=== PATIENT | female | born 1950 | race Caucasian/White ===

== ENCOUNTER → 2016-08-20 | Outpatient (REF) | payer OTHER ==
[2016-08-20 12:55] LABS: BASO % 0.4 % (0.0-1.0); EOS # 0.1 K/mm3 (0.0-0.50); EOS % 1.1 % (0.0-3.0); LARGE UNSTAINED CELL # 0.2 K/mm3 (0.0-0.4); LARGE UNSTAINED CELL % 1.5 % (0.0-4.0); LYMPH # 2.5 K/mm3 (1.5-4.5); LYMPH % 24.1 % (24.0-44.0); MEAN CORPUSCULAR HEMOGLOBIN 27.7 pg (27.0-33.0); MEAN CORPUSCULAR HGB CONC 32.1 g/dl (32.0-36.5); MEAN CORPUSCULAR VOLUME 86.3 fl (80.0-96.0); MONO # 0.4 K/mm3 (0.0-0.8); MONO % 3.7 % (0.0-5.0); NEUTROPHILS # 7.2 K/mm3 (1.8-7.7); NEUTROPHILS % 69.2 % (36.0-66.0); PLATELET COUNT, AUTOMATED 321 k/mm3 (150-450); RED CELL DISTRIBUTION WIDTH 13.2 % (11.5-14.5); WHITE BLOOD COUNT 10.4 K/mm3 (4.0-10.0)
[2016-08-20 13:08] LABS: FOLATE > 24.0 NG/ML; VITAMIN B12 LEVEL 387 PG/ML
[2016-08-20 14:47] LABS: ALBUMIN 3.6 GM/DL (3.2-5.2); ALBUMIN/GLOBULIN RATIO 1.03 (1.00-1.93); ALKALINE PHOSPHATASE 98 U/L (45-117); ALT/SGPT 29 U/L (12-78); ANION GAP 15 MEQ/L (8-16); AST/SGOT 16 U/L (15-37); BILIRUBIN,TOTAL 0.3 MG/DL (0.2-1.0); BLOOD UREA NITROGEN 16 MG/DL (7-18); CALCIUM LEVEL 9.3 MG/DL (8.8-10.2); CARBON DIOXIDE LEVEL 23 MEQ/L (21-32); CHLORIDE LEVEL 103 MEQ/L (98-107); CHOLESTEROL LEVEL 171 MG/DL (<200); CREATININE FOR GFR 0.92 MG/DL (0.55-1.02); GLOMERULAR FILTRATION RATE > 60.0 (>45); GLUCOSE, FASTING 167 MG/DL (80-110); MAGNESIUM LEVEL 1.6 MG/DL (1.8-2.4); POTASSIUM SERUM 4.4 MEQ/L (3.5-5.1); SODIUM LEVEL 141 MEQ/L (136-145); TOTAL PROTEIN 7.1 GM/DL (6.4-8.2); TRIGLYCERIDES LEVEL 126 MG/DL (<150)
== END ==
LOC: M SFHCADAM 09:27
PROVIDERS: ATTEND Physician Assistant Medical
DX: K21.9 Gastro-esophageal reflux disease without esophagitis (principal); E55.9 Vitamin D deficiency, unspecified; E11.59 Type 2 diabetes mellitus with other circulatory complications; E83.42 Hypomagnesemia; E53.8 Deficiency of other specified B group vitamins

== ENCOUNTER → 2016-10-22 | Outpatient (REF) | payer OTHER | LOC: M SFHCADAM 09:21 | PROVIDERS: ATTEND Physician Assistant Medical | DX: E11.59 Type 2 diabetes mellitus with other circulatory complications (principal) ==

== ENCOUNTER → 2017-02-07 | Outpatient (CLI) | payer MEDICARE, MEDICAID ==
--- NOTE | 2017-02-07 15:48 | REPMRS ---
Patient History The patient states she has not had a clinical breast exam in over a year. Family history of breast cancer in maternal grandmother at age 50 or over. Digital Woman Screen Mammo: February 07, 2017 - Exam #: [id number] Bilateral CC and MLO view(s) were taken. Technologist: Shital Nunn, Technologist Prior study comparison: November 09, 2015, digital woman screen mammo performed at [facility] to [facility]. May 07, 2014, digital woman screen mammo performed at [facility] to [facility]. FINDINGS: There are scattered fibroglandular densities. There is a fairly symmetric fibroglandular pattern in both breasts. There has been no interval development of masses, areas of architectural distortion or clusters of microcalcifications typical of malignancy. ASSESSMENT: BI-RADS/ACR category 2 mammogram. Benign finding(s). Recommendation Routine screening mammogram of both breasts in 1 year (for women over age 40). This mammogram was interpreted with the aid of an FDA-approved computer-aided dectection system. Electronically Signed By: Enrike Holliday MD 02/07/17 [id number]
--- NOTE | 2017-02-11 10:44 | DEXA ---
AP SPINE L1 - L4 1.536 2.8 4.4 LT FEMUR TOTAL 0.642 -2.9 -1.7 RT FEMUR TOTAL 1.054 0.4 1.6 TOTAL BODY TOTAL OTHER DUAL FEMUR FRAX* ASSESSMENT Risk factors: Secondary osteoporosis. 10 year probability of fracture Major osteoporotic fracture 12.5 % Hip fracture 2.5 % COMMENTS: Normal bone densitometry of the spine. Normal bone densitometry of the right hip. There is low bone density of the left hip. The increased density of the spine does represent a significant change. The decreased density of the left hip does represent a significant change. The decreased density of the right hip does not represent significant change. The density of the spine has increased 16.3% since the initial exam on 11/2004. The spine density has increased 2.7% since the most recent exam on 04/2014. The density of the left hip has decreased 23.7% since the initial exam on 2004. The density of the left hip has decreased 4.9% since the the most recent exam on 04/2014. The density of the right hip has increased 14.1% since the initial exam on 2004. The density of the right hip has decreased 0.8% since the most recent exam on . FOLLOW-UP: Recommendation for the next bone density exam: 2 years. JHONATAN
== END ==
LOC: M WHC 13:21
PROVIDERS: ATTEND Physician Assistant Medical
DX: Z12.31 Encounter for screening mammogram for malignant neoplasm of breast (principal); M81.0 Age-related osteoporosis without current pathological fracture
CPT/HCPCS: 77080; G0202

== ENCOUNTER → 2017-04-12 | Outpatient (REF) | payer MEDICARE, MEDICAID ==
[2017-04-12 15:02] LABS: ALBUMIN 3.4 GM/DL (3.2-5.2); ALKALINE PHOSPHATASE 97 U/L (45-117); ALT/SGPT 32 U/L (12-78); ANION GAP 12 MEQ/L (8-16); AST/SGOT 12 U/L (15-37); BILIRUBIN,TOTAL 0.3 MG/DL (0.2-1.0); BLOOD UREA NITROGEN 11 MG/DL (7-18); CALCIUM LEVEL 9.1 MG/DL (8.8-10.2); CARBON DIOXIDE LEVEL 26 MEQ/L (21-32); CHLORIDE LEVEL 101 MEQ/L (98-107); CHOLESTEROL LEVEL 184 MG/DL (<200); CREATININE FOR GFR 0.68 MG/DL (0.55-1.02); GLOMERULAR FILTRATION RATE > 60.0 (>45); GLUCOSE, FASTING 178 MG/DL (80-110); MAGNESIUM LEVEL 1.6 MG/DL (1.8-2.4); POTASSIUM SERUM 4.6 MEQ/L (3.5-5.1); SODIUM LEVEL 139 MEQ/L (136-145); TOTAL PROTEIN 6.8 GM/DL (6.4-8.2); TRIGLYCERIDES LEVEL 127 MG/DL (<150)
== END ==
LOC: M SFHCADAM 10:51
PROVIDERS: ATTEND Physician Assistant Medical
DX: E78.4 Other hyperlipidemia (principal); E11.59 Type 2 diabetes mellitus with other circulatory complications; E83.42 Hypomagnesemia; E55.9 Vitamin D deficiency, unspecified

== ENCOUNTER → 2017-11-26 | Outpatient (REF) | payer MEDICARE, MEDICAID ==
[2017-11-26 13:44] LABS: ALBUMIN 3.7 GM/DL (3.2-5.2); ALBUMIN/GLOBULIN RATIO 1.06 (1.00-1.93); ALKALINE PHOSPHATASE 81 U/L (45-117); ALT/SGPT 27 U/L (12-78); ANION GAP 8 MEQ/L (8-16); AST/SGOT 17 U/L (7-37); BILIRUBIN,TOTAL 0.3 MG/DL (0.2-1.0); BLOOD UREA NITROGEN 16 MG/DL (7-18); CALCIUM LEVEL 9.3 MG/DL (8.8-10.2); CARBON DIOXIDE LEVEL 27 MEQ/L (21-32); CHLORIDE LEVEL 106 MEQ/L (98-107); CHOLESTEROL LEVEL 139 MG/DL (<200); CHOLESTEROL RISK RATIO 2.673 (<5); CREATININE FOR GFR 0.79 MG/DL (0.55-1.30); GLOMERULAR FILTRATION RATE > 60.0 (>45); GLUCOSE, FASTING 151 MG/DL (70-100); HDL CHOLESTEROL 52 MG/DL (>40); LDL CHOLESTEROL 65.2 MG/DL (<100); NON-HDL-C 87 MG/DL; POTASSIUM SERUM 4.4 MEQ/L (3.5-5.1); SODIUM LEVEL 141 MEQ/L (136-145); TOTAL PROTEIN 7.2 GM/DL (6.4-8.2); TRIGLYCERIDES LEVEL 109 MG/DL (<150)
[2017-11-26 13:56] LABS: ESTIMATED AVERAGE GLUCOSE 186 MG/DL (60-110); HEMOGLOBIN A1c 8.1 %
== END ==
LOC: M SFHCADAM 12:25
DX: F32.9 Major depressive disorder, single episode, unspecified (principal); E11.59 Type 2 diabetes mellitus with other circulatory complications
CPT/HCPCS: 84443

== ENCOUNTER → 2018-05-09 | Outpatient (REF) | payer MEDICARE, MEDICAID ==
[2018-05-09 12:46] LABS: BASO # 0.1 10^3/uL (0.0-0.2); BASO % 0.5 % (0.0-1.0); EOS # 0.2 10^3/uL (0.0-0.50); EOS % 1.5 % (0.0-3.0); HEMATOCRIT 46.3 % (36.0-47.0); HEMOGLOBIN 14.8 g/dl (12.0-15.5); IMMATURE GRANULOCYTE % 0.6 % (0-3.0); LYMPH # 3.3 10^3/uL (1.5-4.5); MEAN CORPUSCULAR HEMOGLOBIN 27.9 pg (27.0-33.0); MEAN CORPUSCULAR VOLUME 87.4 fl (80.0-96.0); MONO # 0.8 10^3/uL (0.0-0.8); MONO % 7.4 % (0.0-5.0); NEUTROPHILS # 6.5 10^3/uL (1.8-7.7); PLATELET COUNT, AUTOMATED 341 10^3/uL (150-450); RED CELL DISTRIBUTION WIDTH 14.1 % (11.5-14.5); WHITE BLOOD COUNT 10.8 10^3/uL (4.0-10.0)
[2018-05-09 13:17] LABS: ESTIMATED AVERAGE GLUCOSE 197 MG/DL (60-110); HEMOGLOBIN A1c 8.5 %
[2018-05-09 13:19] LABS: ALBUMIN 3.7 GM/DL (3.2-5.2); ALBUMIN/GLOBULIN RATIO 1.03 (1.00-1.93); ALKALINE PHOSPHATASE 107 U/L (45-117); ALT/SGPT 30 U/L (12-78); ANION GAP 14 MEQ/L (8-16); AST/SGOT 15 U/L (7-37); BILIRUBIN,TOTAL 0.3 MG/DL (0.2-1.0); BLOOD UREA NITROGEN 17 MG/DL (7-18); CALCIUM LEVEL 9.9 MG/DL (8.8-10.2); CARBON DIOXIDE LEVEL 23 MEQ/L (21-32); CHLORIDE LEVEL 102 MEQ/L (98-107); CHOLESTEROL LEVEL 216 MG/DL (<200); CHOLESTEROL RISK RATIO 3.857 (<5); CREATININE FOR GFR 0.86 MG/DL (0.55-1.30); GLOMERULAR FILTRATION RATE > 60.0 (>45); GLUCOSE, FASTING 214 MG/DL (70-100); HDL CHOLESTEROL 56 MG/DL (>40); LDL CHOLESTEROL 132 MG/DL (<100); NON-HDL-C 160 MG/DL; POTASSIUM SERUM 4.6 MEQ/L (3.5-5.1); SODIUM LEVEL 139 MEQ/L (136-145); TOTAL PROTEIN 7.3 GM/DL (6.4-8.2); TRIGLYCERIDES LEVEL 138 MG/DL (<150)
[2018-05-09 13:21] LABS: TOTAL 25(OH) VITAMIN D 32.9 NG/ML (30.0-100.0)
[2018-05-09 13:26] LABS: FOLATE > 24.0 NG/ML
== END ==
LOC: M SFHCADAM 09:59
DX: E83.42 Hypomagnesemia (principal); E53.8 Deficiency of other specified B group vitamins; E11.59 Type 2 diabetes mellitus with other circulatory complications; E55.9 Vitamin D deficiency, unspecified
CPT/HCPCS: 82746

== ENCOUNTER → 2018-12-04 | Outpatient (REF) | payer MEDICARE, MEDICAID ==
[2018-12-04 12:46] LABS: BASO % 0.4 % (0.0-1.0); HEMATOCRIT 42.5 % (36.0-47.0); HEMOGLOBIN 13.5 g/dl (12.0-15.5); LYMPH % 33.4 % (24.0-44.0); MEAN CORPUSCULAR HEMOGLOBIN 27.8 pg (27.0-33.0); MEAN CORPUSCULAR HGB CONC 31.8 g/dl (32.0-36.5); MEAN CORPUSCULAR VOLUME 87.4 fl (80.0-96.0); MONO % 6.5 % (0.0-5.0); PLATELET COUNT, AUTOMATED 348 10^3/uL (150-450); RED BLOOD COUNT 4.86 10^6/uL (4.00-5.40); WHITE BLOOD COUNT 9.7 10^3/uL (4.0-10.0)
[2018-12-04 12:47] LABS: EOS # 0.1 10^3/uL (0.0-0.50); LYMPH # 3.2 10^3/uL (1.5-4.5); MONO # 0.6 10^3/uL (0.0-0.8); NEUTROPHILS # 5.6 10^3/uL (1.8-7.7)
[2018-12-04 13:17] LABS: ALBUMIN 3.5 GM/DL (3.2-5.2); ALT/SGPT 20 U/L (12-78); BILIRUBIN,TOTAL 0.3 MG/DL (0.2-1.0); BLOOD UREA NITROGEN 16 MG/DL (7-18); CALCIUM LEVEL 9.4 MG/DL (8.8-10.2); CARBON DIOXIDE LEVEL 27 MEQ/L (21-32); CHLORIDE LEVEL 99 MEQ/L (98-107); CHOLESTEROL LEVEL 162 MG/DL (<200); CHOLESTEROL RISK RATIO 2.793 (<5); CREATININE FOR GFR 0.77 MG/DL (0.55-1.30); FOLATE > 24.0 NG/ML; GLOMERULAR FILTRATION RATE > 60.0 (>45); GLUCOSE, FASTING 263 MG/DL (70-100); HDL CHOLESTEROL 58 MG/DL (>40); LDL CHOLESTEROL 74 MG/DL (<100); NON-HDL-C 104 MG/DL; POTASSIUM SERUM 4.3 MEQ/L (3.5-5.1); SODIUM LEVEL 135 MEQ/L (136-145); TOTAL 25(OH) VITAMIN D 29.5 NG/ML (30.0-100.0); TOTAL PROTEIN 6.6 GM/DL (6.4-8.2); TRIGLYCERIDES LEVEL 149 MG/DL (<150); VITAMIN B12 LEVEL 451 PG/ML
[2018-12-04 15:18] LABS: HEMOGLOBIN A1c 10.8 %
== END ==
LOC: M SFHCADAM 09:58
PROVIDERS: ATTEND Physician Assistant Medical
DX: E11.59 Type 2 diabetes mellitus with other circulatory complications (principal); E55.9 Vitamin D deficiency, unspecified; E83.42 Hypomagnesemia; E53.8 Deficiency of other specified B group vitamins; Z79.899 Other long term (current) drug therapy

== ENCOUNTER → 2018-12-25 | Outpatient (CLI) | payer MEDICARE, MEDICAID ==
--- NOTE | 2018-12-25 15:43 | REP ---
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 There is significant atherosclerotic plaquing bilaterally without compelling duplex Doppler sonographic evidence of hemodynamically significant focal stenosis. There are triphasic waveforms in the common femoral, superficial femoral and popliteal arteries with monophasic waveforms of the profunda and calf arteries on the right. Biphasic waveforms are seen in the left common femoral and proximal superficial femoral arteries. Multiple collateral arterial vessels communicate with the right posterior tibial artery. Right Left Common femoral artery 95.0 cm/s 111 cm/s Profunda 55.0 cm/s 89.4 cm/s Proximal SFA 102 cm/s 45.8 cm/s Mid SFA 39.2 cm/s Distal SFA 69.1 cm/s Popliteal 70.4 cm/s Proximal NATALIE 38.8 cm/s Tibial peroneal trunk 38.1 cm/s Proximal SALES ADMINISTRATOR 31.1 cm/s Distal SALES ADMINISTRATOR 20.6 cm/s Distal NATALIE 8.9 cm/s IMPRESSION: Significant diffuse atherosclerotic plaquing and narrowing without focal stenosis as discussed in detail above. Electronically Signed by Enrike Holliday MD 12/25/2018 04:39 P
== END ==
LOC: M RAD 13:36
PROVIDERS: ATTEND Surgery Vascular Surgery
DX: I73.9 Peripheral vascular disease, unspecified (principal); Z89.612 Acquired absence of left leg above knee

== ENCOUNTER → 2018-12-30 | Outpatient (CLI) | payer MEDICARE, MEDICAID ==
[2018-12-30 11:01] LABS: HEMATOCRIT 42.2 % (36.0-47.0); HEMOGLOBIN 13.5 g/dl (12.0-15.5); MEAN CORPUSCULAR HEMOGLOBIN 28.2 pg (27.0-33.0); MEAN CORPUSCULAR VOLUME 88.3 fl (80.0-96.0); PLATELET COUNT, AUTOMATED 354 10^3/uL (150-450); RED BLOOD COUNT 4.78 10^6/uL (4.00-5.40); WHITE BLOOD COUNT 11.1 10^3/uL (4.0-10.0)
[2018-12-30 11:31] LABS: ALBUMIN 3.5 GM/DL (3.2-5.2); ALT/SGPT 27 U/L (12-78); BILIRUBIN,TOTAL 0.2 MG/DL (0.2-1.0); BLOOD UREA NITROGEN 13 MG/DL (7-18); CALCIUM LEVEL 9.2 MG/DL (8.8-10.2); CARBON DIOXIDE LEVEL 30 MEQ/L (21-32); CHLORIDE LEVEL 102 MEQ/L (98-107); CREATININE FOR GFR 0.77 MG/DL (0.55-1.30); GLOMERULAR FILTRATION RATE > 60.0 (>45); GLUCOSE, FASTING 255 MG/DL (70-100); POTASSIUM SERUM 4.3 MEQ/L (3.5-5.1); SODIUM LEVEL 138 MEQ/L (136-145); TOTAL PROTEIN 6.8 GM/DL (6.4-8.2)
== END ==
LOC: M LAB 10:16
PROVIDERS: ATTEND Surgery Vascular Surgery
DX: I70.235 Atherosclerosis of native arteries of right leg with ulceration of other part of foot (principal)

== ENCOUNTER → 2019-01-06 | Outpatient (CLI) | payer MEDICARE, MEDICAID ==
[~2019-01-06] MED LIST: HEPARIN 1,000 UNITS/ML 10ML VIAL (FOR RADIOLOGY& DIALYSIS ONLY) As Ordered ONE; ISOVUE-300 61% 50ML VIAL (Q9967) As Ordered ONE; LIDOCAINE 2% MDV 20 ML VIAL As Ordered ONE; MIDAZOLAM INJ 2 MG/2 ML VIAL (J2250) As Ordered ONE; NITROGLYCERIN IN D5W 25MG/250ML (100MCG/ML) As Ordered ONE; ceFAZolin 1GM INJ (J0690 PER 500MG) As Ordered ONE; fentaNYL 100 MCG/2 ML INJECTION (J3010) As Ordered ONE
--- NOTE | 2019-01-06 10:25 | ROOPDOC ---
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 PROCEDURE: 1. US guided access L LEADITE HEATER 2. Arteriogram RLE 3. Select view arteriograms of popliteal, anterior tibial, posterior tibial, and peroneal arteries 4. Angioplasty anterior tibial and peroneal arteries with 3 x 220 ariel balloon 5. Completion arteriograms 6. Mynx closure L LEADITE HEATER access site SURGEON: Shital Abrams MD ANESTHESIA: 10cc lidocaine local anesthesia; Moderate intravenous conscious sedation was supervised by Dr. Abrams. The patient was independently monitored by a registered nurse assigned to the Department of radiology using automated blood pressure, EKG, and pulse oximetry. The detailed conscious record is permanently stored in the hospital information system. The following is a conscious sedation record: 2mg versed, 100mcg fentanyl, start time 08:03, end time 09:56, heparin 5000 units INDICATION FOR PROCEDURE: Ms. Cohen is a very pleasant 68-year-old patient with a history of Buerger's disease, status post left above-knee amputation, wheelchair-bound who utilizes her right lower extremity for transfers and pivoting which allows her to stay at home with her . She developed a small wound on the medial right ankle, and arterial duplex revealed possible tibial insufficiency. I had a long discussion with the patient about options with Buerger's disease, and that typically stenotic vessels are resistant to angioplasty and intervention. However, the patient has quit smoking for quite some time, and I feel it is worthwhile to try and provide any improvement outflow that we can to help her maintain her independence and avoid amputation in the future. Risks benefits alternatives to an arteriogram and potential intervention were explained and she is agreeable to proceed. Informed consent was obtained. FINDINGS: 1. Right femoral and popliteal vessels widely patent 2. Right peroneal artery is the single vessel runoff to the foot and ankle and supplies the dorsal pedis and posterior tibial arteries distally through collaterals. 3. The right anterior tibial artery is patent proximally, and occludes upper mid calf 4. The right posterior tibial artery is patent proximally, occludes upper mid calf 5. Unable to cross posterior tibial artery- aborted. 6. Unable to successfully improve patency right anterior tibial artery despite angioplasty and nitroglycerin due to spasm (Buerger's disease) 7. Spasm right peroneal artery relieved with angioplasty and nitroglycerin. PROCEDURE: The patient was brought to the angiographic suite in stable condition and placed supine on the fluoroscopic table. Antibiotics and sedation were administered without complication. A timeout was performed. Local anesthesia was ministers the skin and subcutaneous tissue in the left groin and a microneedle was used to access left common femoral artery under ultrasound guidance. A wire was passed through this access and a micro-sheath was placed. Glidewire was advanced through this under fluoroscopic guidance and the micro-sheath was replaced with a 5 Prydeinig sheath and flushed with saline. We then went up and over the bifurcation with a stiff Glidewire and advanced this into the superficial femoral artery. We then replaced the short sheath with a 45 cm 5 Prydeinig destination sheath. The sheath was flushed with saline. We then performed right lower extremity arteriograms which showed that the femoral and popliteal systems were widely patent, but there was significant anterior tibial posterior tibial disease. Both vessels tapered off after the proximal third, and had minor distal filling through collateral vessels from the widely patent peroneal artery. The peroneal arteries a single vessel runoff to the foot. The pedal vessels are small, wispy, but for the most part patent. We advance her Glidewire and glide cath down to the tibial vessels and select views were performed from the popliteal artery and within each of the tibial vessels once selected. First, we attempted to cross through to the distal posterior tibial artery. We were able to enter the artery with the Glidewire and glide cath, and then selected and 018 wire to try and cross distally. At first, the wire appeared to take the natural course of the vessel, but upon placing a catheter over the wire to this distal aspect, contrast injection revealed we were extraluminal with fistulization to the vein. Upon retracting the catheter to the proximal vessel, there is no active extravasation noted with repeat contrast injection. We again tried to cross but unfortunately the only patent aspect was a small collateral which we initially mistook for the posterior tibial artery itself. This was then aborted. We next were able to cross into the anterior tibial artery and an O18 wire in a when a [place] were used to cross distally. Contrast injection showed we were in the true lumen. We then angioplastied at low atmospheres with a 3 x 200 ariel balloon for three-minute inflation. Following this, we had improve patency in the anterior tibial artery but the the peroneal artery was not filling well. We then passed the wire and then the balloon into the distal peroneal artery and did an angioplasty at low atmospheres for three-minute inflations. Following this, we noted significant spasm in the vessel and 200 g of nitroglycerin was given at the origin of the anterior tibial and tibioperoneal trunk. There was some improvement, but not drastic in the anterior tibial artery. We therefore angioplastied this a second time at low inflations of 1 jeyson for 3 minutes. Following this, there was still some spasm, and we gave an additional 100 g nitroglycerin into the anterior tibial artery and the peroneal artery. After this, there was some improvement in flow in both vessels but I think this spasm is likely due to her history of Buer reymundo's disease and further angioplasty was only going to increase the spasm and give us no further benefit. I'm hopeful that the angioplasty will provide improvement flow through the anterior tibial artery once spasm completely resolves to give her an overall better perfusion to the foot. Therefore I felt the best option was to flush well with heparin which we did prior to removing the catheter. We then exchange the sheath over a stiff Glidewire for a short 5 Prydeinig sheath and deployed a mynx closure device with good hemostasis. Pressure was held for 10 minutes and sterile dressings were applied. The patient was transferred to recovery in stable condition. Her foot was warm and pink with biphasic signals at the DP and PT vessels. ESTIMATED BLOOD LOSS: Approximately 5 mL. COMPLICATIONS: None. PLAN: Our plan to see the patient back in a week to check her left groin access and to make sure that her perfusion to the right lower extremity is intact. She should continue local wound care to the left medial ankle wound, which is almost healed. We again reiterated the importance of her seeing a corporate director of human resources to cut her toenails. SHITAL ABRAMS MD Jan 06, 2019 10:25
== END | disposition home or self-care (01) ==
LOC: M IRPRO 06:59
PROVIDERS: ATTEND Surgery Vascular Surgery
DX: I70.233 Atherosclerosis of native arteries of right leg with ulceration of ankle (principal); I73.1 Thromboangiitis obliterans [Buerger's disease]; L97.319 Non-pressure chronic ulcer of right ankle with unspecified severity; Z87.891 Personal history of nicotine dependence; Z89.612 Acquired absence of left leg above knee; Z99.3 Dependence on wheelchair
CPT/HCPCS: 37228; 37232; 99152; 99153; C1725; C1760; C1769; C1887; C1894; J0690; J2250; J3010; Q9967

== ENCOUNTER → 2020-03-25 | Outpatient (REF) | payer MEDICARE, MEDICAID ==
[2020-03-25 19:38] LABS: BASO % 0.3 % (0.0-1.0); EOS # 0.1 10^3/uL (0.0-0.5); EOS % 0.7 % (0.0-3.0); HEMATOCRIT 47.4 % (36.0-47.0); HEMOGLOBIN 14.4 g/dl (12.0-15.5); LYMPH # 3.2 10^3/uL (1.5-5.0); LYMPH % 26.1 % (24.0-44.0); MEAN CORPUSCULAR HEMOGLOBIN 26.2 pg (27.0-33.0); MEAN CORPUSCULAR HGB CONC 30.4 g/dl (32.0-36.5); MEAN CORPUSCULAR VOLUME 86.2 fl (80.0-96.0); MONO # 0.8 10^3/uL (0.0-0.8); MONO % 6.3 % (0.0-5.0); NEUTROPHILS # 8.1 10^3/uL (1.5-8.5); NEUTROPHILS % 66.1 % (36.0-66.0); PLATELET COUNT, AUTOMATED 424 10^3/uL (150-450); WHITE BLOOD COUNT 12.3 10^3/uL (4.0-10.0)
[2020-03-25 20:11] LABS: ALBUMIN 3.7 GM/DL (3.2-5.2); ALT/SGPT 39 U/L (12-78); BILIRUBIN,TOTAL 0.5 MG/DL (0.2-1.0); BLOOD UREA NITROGEN 8 MG/DL (7-18); CALCIUM LEVEL 9.5 MG/DL (8.8-10.2); CARBON DIOXIDE LEVEL 30 MEQ/L (21-32); CHLORIDE LEVEL 100 MEQ/L (98-107); CHOLESTEROL LEVEL 214 MG/DL (<200); CHOLESTEROL RISK RATIO 3.821 (<5); CREATININE FOR GFR 0.82 MG/DL (0.55-1.30); GLOMERULAR FILTRATION RATE > 60.0 (>45); GLUCOSE, FASTING 228 MG/DL (70-100); HDL CHOLESTEROL 56 MG/DL (>40); LDL CHOLESTEROL 129 MG/DL (<100); NON-HDL-C 158 MG/DL; POTASSIUM SERUM 4.5 MEQ/L (3.5-5.1); SODIUM LEVEL 138 MEQ/L (136-145); TOTAL PROTEIN 7.8 GM/DL (6.4-8.2); TRIGLYCERIDES LEVEL 144 MG/DL (<150)
[2020-03-25 21:59] LABS: HEMOGLOBIN A1c 7.7 %
== END ==
LOC: M LABDRWAD 17:45
PROVIDERS: ATTEND Physician Assistant Medical
DX: E11.51 Type 2 diabetes mellitus with diabetic peripheral angiopathy without gangrene (principal); E78.2 Mixed hyperlipidemia; K21.9 Gastro-esophageal reflux disease without esophagitis; E83.42 Hypomagnesemia
CPT/HCPCS: 36415; 80053; 80061; 83036; 83735; 84443; 85025; G0463

== ENCOUNTER → 2020-11-09 | Outpatient (REF) | payer MEDICARE, MEDICAID ==
[2020-11-09 13:36] LABS: BASO # 0.1 10^3/uL (0.0-0.2); BASO % 0.6 % (0.0-1.0); EOS # 0.1 10^3/uL (0.0-0.5); HEMATOCRIT 42.3 % (36.0-47.0); HEMOGLOBIN 12.9 g/dl (12.0-15.5); LYMPH # 3.1 10^3/uL (1.5-5.0); LYMPH % 30.8 % (24.0-44.0); MEAN CORPUSCULAR HEMOGLOBIN 27.3 pg (27.0-33.0); MEAN CORPUSCULAR HGB CONC 30.5 g/dl (32.0-36.5); MEAN CORPUSCULAR VOLUME 89.4 fl (80.0-96.0); MONO # 0.8 10^3/uL (0.0-0.8); MONO % 7.6 % (2.0-8.0); PLATELET COUNT, AUTOMATED 336 10^3/uL (150-450); RED BLOOD COUNT 4.73 10^6/uL (4.00-5.40); WHITE BLOOD COUNT 10.2 10^3/uL (4.0-10.0)
[2020-11-09 13:39] LABS: ALBUMIN 3.4 GM/DL (3.2-5.2); ALT/SGPT 33 U/L (12-78); BILIRUBIN,TOTAL 0.3 MG/DL (0.2-1.0); BLOOD UREA NITROGEN 12 MG/DL (7-18); CALCIUM LEVEL 10.1 MG/DL (8.8-10.2); CARBON DIOXIDE LEVEL 29 MEQ/L (21-32); CHLORIDE LEVEL 103 MEQ/L (98-107); CHOLESTEROL LEVEL 156 MG/DL (<200); CHOLESTEROL RISK RATIO 2.557 (<5); CREATININE FOR GFR 0.84 MG/DL (0.55-1.30); FOLATE > 24.0 NG/ML; GLOMERULAR FILTRATION RATE > 60.0 (>45); GLUCOSE, FASTING 179 MG/DL (70-100); HDL CHOLESTEROL 61 MG/DL (>40); IRON (FE) 50 UG/DL (50-170); LDL CHOLESTEROL 71 MG/DL (<100); MAGNESIUM LEVEL 1.9 MG/DL (1.8-2.4); NON-HDL-C 95 MG/DL; POTASSIUM SERUM 4.4 MEQ/L (3.5-5.1); SODIUM LEVEL 140 MEQ/L (136-145); TOTAL 25(OH) VITAMIN D 18.5 NG/ML (30.0-100.0); TOTAL PROTEIN 6.9 GM/DL (6.4-8.2); TRIGLYCERIDES LEVEL 122 MG/DL (<150); VITAMIN B12 LEVEL 614 PG/ML
[2020-11-09 15:25] LABS: HEMOGLOBIN A1c 8.4 %
== END ==
LOC: M SFHCADAM 08:43
PROVIDERS: ATTEND Physician Assistant Medical
DX: E83.42 Hypomagnesemia (principal); E53.8 Deficiency of other specified B group vitamins; E11.59 Type 2 diabetes mellitus with other circulatory complications; K21.9 Gastro-esophageal reflux disease without esophagitis; E55.9 Vitamin D deficiency, unspecified

== ENCOUNTER → 2021-04-07 | Outpatient (REF) | payer MEDICARE, MEDICAID ==
[2021-04-07 13:25] LABS: HEMOGLOBIN A1c 7.1 %
[2021-04-07 13:40] LABS: ALBUMIN 3.5 GM/DL (3.2-5.2); ALT/SGPT 25 U/L (12-78); BILIRUBIN,TOTAL 0.3 MG/DL (0.2-1.0); BLOOD UREA NITROGEN 13 MG/DL (7-18); CALCIUM LEVEL 9.8 MG/DL (8.8-10.2); CARBON DIOXIDE LEVEL 26 MEQ/L (21-32); CHLORIDE LEVEL 103 MEQ/L (98-107); CHOLESTEROL LEVEL 181 MG/DL (<200); CHOLESTEROL RISK RATIO 2.742 (<5); CREATININE FOR GFR 0.76 MG/DL (0.55-1.30); GLOMERULAR FILTRATION RATE > 60.0 (>39); GLUCOSE, FASTING 129 MG/DL (70-100); HDL CHOLESTEROL 66 MG/DL (>40); LDL CHOLESTEROL 93 MG/DL (<100); NON-HDL-C 115 MG/DL; POTASSIUM SERUM 4.3 MEQ/L (3.5-5.1); SODIUM LEVEL 137 MEQ/L (136-145); TOTAL PROTEIN 7.1 GM/DL (6.4-8.2); TRIGLYCERIDES LEVEL 112 MG/DL (<150)
[2021-04-07 13:49] LABS: TOTAL 25(OH) VITAMIN D 36.8 NG/ML (30.0-100.0)
== END ==
LOC: M SFHCADAM 09:11
PROVIDERS: ATTEND Physician Assistant Medical
DX: E11.51 Type 2 diabetes mellitus with diabetic peripheral angiopathy without gangrene (principal); E55.9 Vitamin D deficiency, unspecified

== ENCOUNTER → 2021-04-10 | Outpatient (CLI) | payer MEDICARE, MEDICAID ==
--- NOTE | 2021-04-10 15:08 | REP ---
INDICATION: PANLOBULAR EMPHYSEMA. COMPARISON: 11/13/2006 a portable exam and the latest prior TECHNIQUE: PA and lateral FINDINGS: There is lung field hyperexpansion and evidence of upper lobe bilateral bullous emphysematous change. No acute patchy parenchymal opacities or pleural effusions have developed. The pleural angles are sharp. Heart is not enlarged. There are chronic changes seen involving the imaged spine. IMPRESSION: Chronic changes as described above without evidence of acute cardiopulmonary disease. <Electronically signed by Kenji Valentin > 04/10/21 [id number]
== END ==
LOC: M ADAMS 14:38
PROVIDERS: ATTEND Physician Assistant Medical
DX: J34.1 Cyst and mucocele of nose and nasal sinus (principal)

== ENCOUNTER → 2021-12-01 | Outpatient (REF) | payer MEDICARE, MEDICAID ==
[2021-12-01 17:06] LABS: APPEARANCE, URINE CLOUDY (CLEAR); BACTERIA, URINE AUTO 1+ (NEGATIVE); BILIRUBIN, URINE AUTO NEGATIVE (NEGATIVE); BLOOD, URINE BLOOD 1+ (NEGATIVE); COLOR, URINE YELLOW (YELLOW); GLUCOSE, URINE (UA) AUTO 3+ mg/dL (NEGATIVE); KETONE, URINE AUTO 1+ mg/dL (NEGATIVE); LEUKOCYTE ESTERASE, URINE AUTO 3+ (NEGATIVE); MUCUS, URINE SMALL (NEGATIVE); NITRITE, URINE AUTO NEGATIVE (NEGATIVE); PROTEIN, URINE AUTO 2+ mg/dL (NEGATIVE); RBC, URINE AUTO 29 /HPF (0-3); SPECIFIC GRAVITY URINE AUTO 1.022 (1.002-1.035); SQUAMOUS EPITHELIAL CELL UR AU 2 /HPF (0-6); UROBILINOGEN, URINE AUTO 0.2 mg/dL (0.0-2.0); WBC, URINE AUTO TNTC /HPF (0-3)
== END ==
LOC: M SFHCADAM 15:17
PROVIDERS: ATTEND Family Medicine
DX: R35.0 Frequency of micturition (principal); N76.6 Ulceration of vulva